=== PATIENT | male | born 1940 | race Caucasian/White ===

== ENCOUNTER 2019-05-24 13:02 | Emergency (ER) | payer OTHER ==
[~2019-05-24] VITALS: Ht 182.9 cm; Wt 125.2 kg
[2019-05-24 13:21] VITALS: BP 00/00
== END 2019-05-24 13:21 ==
LOC: ER 13:02
DX: I25.10 Atherosclerotic heart disease of native coronary artery without angina pectoris (principal); I46.9 Cardiac arrest, cause unspecified; J84.10 Pulmonary fibrosis, unspecified